=== PATIENT | male | born 1960 | race Caucasian/White ===

== ENCOUNTER 2017-01-24 02:43 | Day surgery (SDC) | payer OTHER ==
[~2017-01-24] VITALS: Ht 185.4 cm; Wt 108.9 kg
[~2017-01-24 02:43] MED LIST: ASCO500C6 PO
[2017-01-24] MEDS ORDERED: 0.9% Sodium Chloride 1,000 ML IV SCH (06:00)
[2017-01-24] MEDS ORDERED: fentaNYL-PF 50 mCg/mL 2 mL Inj IVPUSH PRN (06:00)
[2017-01-24] MEDS ORDERED: Sodium Chloride LOK Flush 10 mL Syringe IV PRN (06:00)
[2017-01-24 09:56] VITALS: BP 125/76; PULSE 54; RESP 16; O2SAT 96
[2017-01-24] MEDS ORDERED: TACR100O2 TP (09:57)
[2017-01-24 10:55] VITALS: BP 145/77; PULSE 52; RESP 12; O2SAT 97
[2017-01-24 11:05] VITALS: BP 139/76; PULSE 58; RESP 12; O2SAT 97
[2017-01-24 11:12] VITALS: BP 134/77; PULSE 55; RESP 12; O2SAT 97
--- NOTE | 2017-01-24 22:28 | ENDO ---
[address] [address] ENDOSCOPY PROCEDURE PATIENT: ILAN SIMPSON : 1960 MR#: [id number] ADMIT: 01/24/2017 JOB ID: [id number] DATE OF PROCEDURE: 01/24/2017 PROCEDURE: Colonoscopy. INDICATION: Family history of colon cancer. SEDATION: The patient's ASA classification is I. Mallampati score is 2. MEDICATIONS: 1. Versed 2 mg. 2. Fentanyl 50 mcg. INSTRUMENT USED: PCF-H180AL. PREPARATION QUALITY: Fair. PROCEDURE DETAILS: After informed consent was obtained, the patient was brought to the GI suite, where he was placed on oxygen via nasal cannula and monitored with continuous pulse oximeter, telemetry, and blood pressure monitoring. A time-out was performed. Then, he was placed in the left lateral decubitus position and medications were administered for sedation. Digital rectal exam was performed which was unremarkable. The colonoscope was then inserted into the rectum and advanced under direct visualization to the cecum, which identified by the presence of the ileocecal valve and appendiceal orifice. Once the cecum was reached, the colonoscope was withdrawn back into the rectum as mucosa and lumen were examined. In the rectum, retroflexion was performed. Following retroflexion, remaining air in the rectum was suctioned and procedure was completed. FINDINGS: 1. Diverticula were seen throughout the descending and sigmoid colon. 2. Retroflexed views in the rectum revealed small to moderate-sized internal hemorrhoids. IMPRESSION: 1. Left-sided diverticulosis. 2. Internal hemorrhoids. RECOMMENDATIONS: 1. Fiber rich diet. 2. Repeat colonoscopy in five years. COMPLICATIONS: None. ESTIMATED BLOOD LOSS: Zero.
== END 2017-01-24 23:59 | disposition home or self-care (01) ==
LOC: END 02:43
PROVIDERS: ATTEND Internal Medicine Gastroenterology
DX: Z12.11 Encounter for screening for malignant neoplasm of colon (principal); Z86.010 Personal history of colon polyps; Z80.0 Family history of malignant neoplasm of digestive organs; K57.30 Diverticulosis of large intestine without perforation or abscess without bleeding; K64.8 Other hemorrhoids; E78.5 Hyperlipidemia, unspecified
CPT/HCPCS: G0105; G0500; J2250; J3010; J7030